=== PATIENT | female | born 1980 | race Caucasian/White ===

== ENCOUNTER 2018-08-05 20:01 | Emergency (ER) | payer MEDICAID, OTHER ==
[~2018-08-05] VITALS: Ht 162.6 cm; Wt 65.5 kg
[2018-08-05 20:06] VITALS: BP 157/86
[2018-08-05 21:27] LABS: CLARITY,URINE CLOUDY (Clear); COLOR,URINE YELLOW (Yellow); GLUCOSE, URINE NEGATIVE (Neg); KETONES,URINE NEGATIVE (Neg); LEUKOCYTE ESTERASE ,URINE TRACE (Neg); NITRITES, URINE POSITIVE (Neg); OCCULT BLOOD,URINE LARGE (Neg); PROTEIN,URINE 100 mg/dl (Neg); UROBILINOGEN,URINE 0.2 E.U/dL (0.2-1.0)
[2018-08-05 21:31] LABS: UA COLLECTION TYPE CLN CATCH MIDSTREAM
[2018-08-05 21:34] LABS: BACTERIA,URINE 3+ /HPF (Neg); RBC,URINE 50-100 /HPF (0-2); SQUAMOUS EPITHELIAL CELL,UR FEW /LPF (FEW)
[2018-08-05 21:38] LABS: WBC,URINE TNTC /HPF (0-4)
[2018-08-05] MEDS ORDERED: CEPH-572 PO (21:44)
[2018-08-05] MEDS ORDERED: cephalexin 250mg capsule PO ONE (21:45)
[2018-08-05] MEDS ORDERED: phenazopyridine 100mg tablet PO ONE (21:45)
== END 2018-08-05 22:08 | disposition home or self-care (01) ==
LOC: ER 20:02
DX: N39.0 Urinary tract infection, site not specified (principal); M54.9 Dorsalgia, unspecified; G89.29 Other chronic pain; Z88.5 Allergy status to narcotic agent; Z88.8 Allergy status to other drugs, medicaments and biological substances; Z79.899 Other long term (current) drug therapy
CPT/HCPCS: 81001; 87077; 87088; 87186; 99283